=== PATIENT | female | born 1995 | race Caucasian/White ===

== ENCOUNTER 2019-05-03 07:20 | Inpatient (IN) ==
[2019-05-03] MEDS ORDERED: OXYTOCIN 30 UNITS/500 ML BAG IV PRN ×3 (07:30→19:16)
[2019-05-03 07:47] LABS: Hematocrit (blood only) 40.5 % (37-47); Hemoglobin 14.2 g/dL (12.0-16.0); Mean Corpuscular Hemoglobin 33.4 pg (25-34); Mean Corpuscular Volume 95.3 fL (80-100); Mean Platelet Volume 10.4 fL (7.4-10.4); Platelet Count 201 K/uL (130-400); RDW Coefficient of Variation 13.2 % (11.5-14.5); RDW Standard Deviation 45.2 fL (36.4-46.3); Red Blood Count 4.25 M/uL (4.2-5.4); White Blood Count 10.77 K/uL (4.8-10.8)
[2019-05-03 07:48] LABS: Mean Corpuscular Hgb Conc 35.1 g/dL (32-36)
[2019-05-03] MEDS: LACTATED RINGER'S 1,000 ML IV PRN ×2 (11:29→18:01)
--- NOTE | 2019-05-03 17:52 | History & Physical Report ---
Date of Service May 03, 2019 Assessment & Plan (1) Encounter for supervision of normal first : 24yo G1 at 40.3 weeks GA. IOL/SROM. 1. Fetus: Cat 1 2. Labor: Patient has been ruptures without significant change for ~ 4 hours. Will augment with oxytocin. Rupture positive. 3. Vitals: WNL 4. GBS neg 5. Rh positive History of Present Illness Primary Care Provider: Ham Gonzalez MD 24yo G1 at 40.3 weeks GA. IOL/SROM. Patient was scheduled for IOL today but called in with LOF this AM. Reporting occassional contractions. No VB. Good FM. complicated by Hx of maternal VSD. Patient had normal ECHO. GBS - Allergies Allergy/AdvReac Type Severity Reaction Status Date / Time No Known Drug Allergies Allergy Verified 05/02/19 10:31 Home Medications Home Medications Medication Instructions Recorded Confirmed Type ferrous sulfate [iron] 325 mg PO DAILY 05/03/19 05/03/19 History vit no.[id number] 1 tab PO HS 05/03/19 05/03/19 History [ Vitamin] Patient History Medical History H/O varicella Surgical History S/P breast augmentation (~05/24/17) S/P tonsillectomy (~05/03/19) S/P wisdom tooth extraction (~07/31/08) Social History Preferred Language: Icelandic Communication Ability: Effective Working Supervisor Required: No Beliefs That Will Affect Care: None marital status: Current Living Situation: Spouse Other Information That Helps Us Care for You: No Feels Safe at Home: Yes Safety Concerns: Feels Safe At This Time Smoking Status: Never smoker Do You Dip or Chew Tobacco: No ; Second Hand Exposure: No ; Tobacco Cessation Education Requested by Patient: No Hx Alcohol Use: No Hx Substance Use: No Review of Systems All systems reviewed & are unremarkable except as noted in HPI & below Physical Exam Gastrointestinal (Abdomen): Percussion/Palpation: abdomen soft; abdomen nontender Genitourinary: Manual OB Exam: + cervical dilation 6 cm, + cervical effacement 80% and + station -1 OB Exam Monitor Tracing: + external FHT monitor used, + external uterine monitor used, + category I and + normal FHT variability Results & Data Vital Signs (Past 12 Hours) Vital Signs Temp Pulse Resp BP 05/03/19 17:15 36.8 C 86 20 118/55 L 05/03/19 16:11 83 111/54 L 05/03/19 15:11 36.9 C 77 16 113/63 05/03/19 14:10 80 103/49 L 05/03/19 13:10 78 20 103/55 L 05/03/19 12:09 85 111/61 05/03/19 11:54 36.7 C 87 16 110/58 L 05/03/19 11:37 77 20 114/56 L 05/03/19 09:14 36.8 C 83 16 113/65 05/03/19 08:07 36.7 C 85 20 118/73
[2019-05-03] MEDS ORDERED: BUPIVACAINE 0.25% 30 ML VIAL ONE (17:56)
[2019-05-03] MEDS ORDERED: ePHEDrine sulfate 50 MG/ML AMP ONE (17:56)
[2019-05-03] MEDS ORDERED: fentaNYL citrate 100 MCG/2 ML VIAL ONE (17:57)
[2019-05-03] MEDS ORDERED: fentaNYL 2MCG/ML ROPIV 1.25MG/ML 100 ML BAG EPI ONE (17:57)
--- NOTE | 2019-05-03 18:01 | Labor Progress Brief Note ---
Date of Service May 03, 2019 Subjective Reason For Note: Routine Evaluation Current Pain Level(1-10): 3 Assessment & Plan (1) Encounter for supervision of normal first : 24yo G1 at 40.3 weeks GA. IOL/SROM. 1. Fetus: Cat 1 2. Labor: Continue augmentation with oxytocin. Rupture positive. 3. Vitals: WNL 4. GBS neg 5. Rh positive Physical Exam Genitourinary: Manual OB Exam: + cervical dilation 6 cm, + cervical effacement 80% and + station -1 OB Exam Monitor Tracing: + external FHT monitor used, + external uterine monitor used and + category I Ruptured forebag for clear Results & Data Vital Signs (Past 12 Hours) Vital Signs Temp Pulse Resp BP 05/03/19 17:15 36.8 C 86 20 118/55 L 05/03/19 16:11 83 111/54 L 05/03/19 15:11 36.9 C 77 16 113/63 05/03/19 14:10 80 103/49 L 05/03/19 13:10 78 20 103/55 L 05/03/19 12:09 85 111/61 05/03/19 11:54 36.7 C 87 16 110/58 L 05/03/19 11:37 77 20 114/56 L 05/03/19 09:14 36.8 C 83 16 113/65 05/03/19 08:07 36.7 C 85 20 118/73
--- NOTE | 2019-05-03 18:08 | Anesthesiology Consultation ---
Date of Service May 03, 2019 Assessment & Plan (1) Encounter for pre-operative examination: Chart Review Chart Review: Acceptable Risk for Labor Epidural History Height/Weight Height: 5 ft 4 in Weight: 63.503 kg Allergies Allergy/AdvReac Type Severity Reaction Status Date / Time No Known Drug Allergies Allergy Verified 05/02/19 10:31 Medications Home Medications Medication Instructions Recorded Confirmed Last Taken ferrous sulfate [iron] 325 mg PO DAILY 05/03/19 05/03/19 05/02/19 21:00 vit no.[id number] 1 tab PO HS 05/03/19 05/03/19 05/02/19 21:00 [ Vitamin] Active Medications Generic Name Dose Route Start Last Admin Trade Name Freq PRN Reason Stop Dose Admin Lactated Ringer's 1,000 mls @ 125 mls/hr 05/03/19 07:35 05/03/19 18:01 Lr IV 05/05/19 07:34 999 mls/hr .Q8H PRN Administration L&D Protocol Protocol Oxytocin 30 units in 500 mls @ 17 mls/hr 05/03/19 10:58 05/03/19 16:05 Pitocin IV 06/02/19 10:57 1.02 units/hr .Q24H PRN 17 mls/hr Labor Induction/Augmentation Titration Protocol 1.02 UNITS/HR Past Medical History Medical History H/O varicella Past Family History Family History Grandmother (Paternal) Ovarian cancer Ovarian cyst Past Surgical History Surgical History S/P breast augmentation (~05/24/17) S/P tonsillectomy (~05/03/19) S/P wisdom tooth extraction (~07/31/08) Social History Smoking Status: Never smoker Do You Dip or Chew Tobacco: No Hx Alcohol Use: No Hx Substance Use: No Physical Exam Vital Signs Last Vital Signs Temp 36.8 C 05/03/19 17:15 Pulse 86 05/03/19 17:15 Resp 20 05/03/19 17:15 BP 118/55 L 05/03/19 17:15 Testing Laboratory Results 05/03/19 07:35
[2019-05-03] MEDS ORDERED: SUPERCREAM 0.870% 15 GM JAR EXT PRN (19:16)
[2019-05-03] MEDS ORDERED: ACETAMINOPHEN 325 MG TAB PO PRN (19:16)
[2019-05-03] MEDS ORDERED: BENZOCAINE 20% AER SPR 82.5 GM CAN EXT PRN (19:16)
[2019-05-03] MEDS ORDERED: HYDROCORTISONE ACETATE 25 MG SUPP PR PRN (19:16)
[2019-05-03] MEDS ORDERED: DIPHTHERIA/TETANUS/PERTUSSIS 0.5 ML SYR/VIAL IM ONE (19:16)
[2019-05-03] MEDS: IBUPROFEN 600 MG TAB PO PRN (19:32)
[2019-05-03] MEDS: DOCUSATE SODIUM 100 MG CAP PO SCH (21:00)
--- NOTE | 2019-05-03 22:09 | Delivery Summary ---
DATE OF OPERATION: 05/03/2019 PROCEDURE: Normal spontaneous vaginal delivery with first degree laceration repair. SURGEON: Rohith Goldberg M.D. PREOPERATIVE DIAGNOSES: 1. Single intrauterine at 40 weeks 3 days gestational age. 2. Induction of labor. POSTOPERATIVE DIAGNOSIS: Status post delivery. ESTIMATED BLOOD LOSS: 300 mL. DRAINS: None. FLUIDS: Continuous lactated Ringer. URINE OUTPUT: Not measured. COMPLICATIONS: None. FINDINGS: Viable male infant with weight pending, Apgars of 8 and 9 at 1 and 5 minutes respectively. INDICATIONS AND DESCRIPTION OF PROCEDURE: Alisa is a 24-year-old G1, P0, admitted at 40 weeks 3 days gestational age for induction of labor and possible spontaneous rupture of membranes. The patient called the on-salesperson furniture approximately 6:30 with report of rupture of membranes and was sent to labor and delivery. At that time, the patient was positive for Nitrazine and appeared to be ruptured on exam. The patient was started on oxytocin approximately 10:30 a.m. after approximately 4 hours to allow for spontaneous labor to ensue. The oxytocin was titrated per regular protocol. The patient underwent rupture of a forebag approximately 5:30 p.m. and then progressed in labor to complete +2 station for approximately 30 minutes. The patient then pushed for approximately 15 minutes to achieve delivery. The patient progressed to 10 cm dilated, 100% effaced, positive 2-3 station, pushed intact perineum without anesthesia and delivered a viable male infant. Weight and Apgars as noted above. Head of the delivered in LYLY position to right transverse. No nuchal cord was noted. Body and shoulders quickly followed. was noted to be vigorous soon after delivery. A 2-minute delayed cord clamping was initiated, after which the cord was double clamped and cut and the remained on maternal abdomen and still noted to be vigorous. Cord blood was then obtained. Attention was then turned to delivery of the placenta, which was delivered intact with 3-vessel cord, gentle cord traction. On inspection of the vagina, perineum and cervix, there was noted to be a first degree perineal laceration, which was repaired with 3-0 Vicryl in traditional fashion. Needle, sponge and instrument counts were correct at the completion of the case. Both mother and were stable in the immediate post-delivery. I attest to the content of the Intraoperative Record and any orders documented therein. Any exception s are noted below.
[2019-05-04] MEDS: IBUPROFEN 600 MG TAB PO PRN ×4 (01:33→20:41)
--- NOTE | 2019-05-04 06:59 | Obstetrical Progress Note ---
Date of Service <Chet Lacy DO - Last Filed: 05/04/19 07:21> May 04, 2019 Assessment & Plan <Chet Lacy DO - Last Filed: 05/04/19 07:21> (1) : -PPD#1 -Vitals reviewed, WNL (Tmax 37.0) - GBS -, Blood Type O+ - Clinically stable. - Feels well today. - Pain well controlled. - Routine post- care - Encourage continuation Day #:: 1 Subjective <Chet Lacy DO - Last Filed: 05/04/19 07:21> Ambulation: limited ambulation (only ambulates to use the restroom) Voiding: voiding difficulty (states she only voided once, and felt as though she had to force herself.) Passing Gas:: No Diet Tolerance:: regular diet Lochia:: Moderate Feeding Type:: breast feeding Current Pain Level(1-10): 7 (with movement. Improves with analgesics) Patient is a 24 PPD#1. Patient states that she is feeling relatively well today and that her pain is well controlled while at rest. With movement she notes pain in her low back and sacrum which she states is where she felt her pain during labor. She has not been ambulating much as she would like. Constitutional: no fever and no chills Respiratory: no cough, no dyspnea and no wheezing Cardiovascular: no chest pain, no dyspnea, no palpitations, no edema and no calf pain Breast: no breast pain Gastrointestinal: no abdominal pain, no nausea and no vomiting Genitourinary (female): no dysuria and no difficulty urinating Neurologic: no headache(s) Physical Exam <DO Lottie Rosales Last Filed: 05/04/19 07:21> Constitutional WD/WN, vitals as above Respiratory normal respiratory effort, lungs clear to auscultation Cardiovascular Rate/Rhythm: regular rate and regular rhythm Heart Sounds: normal S1 and normal S2; no click, no gallop, no murmur and no cardiac rub Extremities: no calf tenderness and no edema Gastrointestinal (Abdomen) Inspection/Auscultation: abdomen normal to inspection and normal bowel sounds Percussion/Palpation: + abdomen tender (Slight tenderness to palpation of lower quadrants of abdomen) and abdomen soft Genitourinary OB Exam Abdomen: + fundal height Fundus: + firm and + relation to umbilicus (2cm below); not tender and not boggy Results & Data <Chet Lacy DO - Last Filed: 05/04/19 07:21> Vital Signs (Past 12 Hours) Vital Signs Temp Pulse Pulse Resp BP BP 05/04/19 04:00 36.7 C 78 18 110/78 05/03/19 23:00 36.7 C 80 18 112/76 05/03/19 21:40 36.7 C 73 18 129/63 05/03/19 21:10 93 H 119/61 05/03/19 20:55 78 121/67 05/03/19 20:40 37.0 C 97 H 18 121/60 05/03/19 20:10 82 18 111/67 05/03/19 19:55 73 18 113/64 05/03/19 19:40 79 18 120/76 05/03/19 19:24 72 18 132/79 05/03/19 19:08 36.7 C 80 18 128/72 Medications Administered Current Inpatient Medications Acetaminophen (Tylenol) 650 mg PO Q6H PRN PRN Reason: Pain/LUND/Fever Stop: 06/02/19 19:15 Benzocaine (Dermoplast Pain Relieving [place]) 1 appln EXT PRN PRN PRN Reason: Perineal Discomfort Stop: 06/02/19 19:15 Last Admin: 05/03/19 19:33 Dose: 82.5 appln Documented by: Bisacodyl (Dulcolax) 5 mg PO 1999 [facility] Stop: 05/04/19 20:01 Bisacodyl (Dulcolax) 10 mg MO DAILY PRN PRN Reason: No BM on 2nd post- day Stop: 06/04/19 08:59 Cocaine HCl (Supercream 0.870%) 1 gm EXT BID PRN PRN Reason: Hemorrhoidal Inflammation Stop: 05/17/19 19:15 Docusate Sodium (Colace) 100 mg PO DAILY@08,21 [facility] Stop: 06/02/19 20:59 Last Admin: 05/03/19 21:00 Dose: Not Given Documented by: Hydrocortisone (Anusol Hc) 25 mg MO BID PRN PRN Reason: Hemorrhoidal Inflammation Stop: 06/02/19 19:15 Lactated Ringer's (Lr) 1,000 mls @ 125 mls/hr IV .Q8H PRN; Protocol PRN Reason: L&D Protocol Stop: 05/05/19 07:34 Last Admin: 05/03/19 18:01 Dose: 999 mls/hr Documented by: Oxytocin (Pitocin) 30 units in 500 mls @ 333.333 mls/hr IV .Q1H30M PRN; Protocol PRN Reason: Bleeding Control Stop: 06/02/19 07:29 Oxytocin (Pitocin) 30 units in 500 mls @ 333.333 mls/hr IV .Q1H30M PRN; Protocol PRN Reason: Bleeding Control Ibuprofen (Motrin) 600 mg PO Q4H PRN PRN Reason: Pain/LUND/Cramping/Fever Stop: 06/02/19 19:15 Last Admin: 05/04/19 01:33 Dose: 600 mg Documented by: Prenat Multivit/[employer]/Iron/Folic Ac ( Vitamin) 1 tab PO DAILY@08 [facility] Stop: 06/03/19 07:59 <Rohith Goldberg MD - Last Filed: 05/04/19 07:26> Co-Signing Physician Notes Patient seen and evaluated and agree with the above findings and plan. Continue routine post care Resident Activity Tracking <Chet Lacy DO - Last Filed: 05/04/19 07:21> Resident Involvement: Resident Care Provided Care Provided: OB Delivery
[2019-05-04] MEDS: PRENATAL VITAMIN 1 TAB PO SCH (07:19)
[2019-05-04] MEDS: DOCUSATE SODIUM 100 MG CAP PO SCH ×2 (07:19→20:41)
[2019-05-04 07:20] LABS: Hematocrit (blood only) 40.5 % (37-47); Hemoglobin 13.9 g/dL (12.0-16.0)
[2019-05-04] MEDS ORDERED: BISACODYL 5 MG TABEC PO SCH (20:00)
--- NOTE | 2019-05-05 07:15 | Obstetrical Progress Note ---
Date of Service <Chet Lacy DO - Last Filed: 05/05/19 07:20> May 05, 2019 Assessment & Plan <DO Lottie Rosales Last Filed: 05/05/19 07:20> (1) : -PPD#2 -Vitals reviewed, WNL (Tmax 37.2) - GBS -, Blood Type O+ - Clinically stable. - Feels well today. - Pain well controlled. - Routine post- care - Encourage continuation - Counseled patient on discharge today. Present on Admission?: Yes Day #:: 2 Subjective <Chet Lacy DO - Last Filed: 05/05/19 07:20> Ambulation: ambulating normally Voiding: no voiding problems Passing Gas:: Yes Diet Tolerance:: regular diet Lochia:: Moderate Feeding Type:: breast feeding Current Pain Level(1-10): 3 (improves with analgesics) Patient is a 24 PPD#2. Patient notes doing much better today and states she has been moving around more. Her only complaint this morning is that she has slight nipple pain. She has no other complaints at this time. Constitutional: no fever and no chills Respiratory: no cough, no dyspnea and no wheezing Cardiovascular: no chest pain, no dyspnea, no palpitations, no edema and no calf pain Breast: + breast pain (slight nipple pain) Gastrointestinal: no abdominal pain, no nausea and no vomiting Genitourinary (female): no dysuria and no difficulty urinating Neurologic: no headache(s) Physical Exam <DO Lottie Rosales Last Filed: 05/05/19 07:20> Constitutional WD/WN, vitals as above Respiratory normal respiratory effort, lungs clear to auscultation Cardiovascular Rate/Rhythm: regular rate and regular rhythm Heart Sounds: normal S1 and normal S2; no click, no gallop, no murmur and no cardiac rub Extremities: no calf tenderness and no edema Gastrointestinal (Abdomen) Inspection/Auscultation: abdomen normal to inspection and normal bowel sounds Percussion/Palpation: abdomen soft; abdomen nontender Genitourinary OB Exam Abdomen: + fundal height Fundus: + firm and + relation to umbilicus (2.5cm below); not tender and not boggy Results & Data <Chet SaldañanDO Tafoya Last Filed: 05/05/19 07:20> Vital Signs (Past 12 Hours) Vital Signs Temp Pulse Resp BP 05/04/19 23:25 37.2 C 61 18 124/71 05/04/19 20:00 37 C 73 18 126/67 Medications Administered Current Inpatient Medications Acetaminophen (Tylenol) 650 mg PO Q6H PRN PRN Reason: Pain/LUND/Fever Stop: 06/02/19 19:15 Benzocaine (Dermoplast Pain Relieving [place]) 1 appln EXT PRN PRN PRN Reason: Perineal Discomfort Stop: 06/02/19 19:15 Last Admin: 05/03/19 19:33 Dose: 82.5 appln Documented by: Bisacodyl (Dulcolax) 10 mg MT DAILY PRN PRN Reason: No BM on 2nd post- day Stop: 06/04/19 08:59 Cocaine HCl (Supercream 0.870%) 1 gm EXT BID PRN PRN Reason: Hemorrhoidal Inflammation Stop: 05/17/19 19:15 Docusate Sodium (Colace) 100 mg PO DAILY@08,21 [facility] Stop: 06/02/19 20:59 Last Admin: 05/04/19 20:41 Dose: 100 mg Documented by: Hydrocortisone (Anusol Hc) 25 mg [place] BID PRN PRN Reason: Hemorrhoidal Inflammation Stop: 06/02/19 19:15 Lactated Ringer's (Lr) 1,000 mls @ 125 mls/hr IV .Q8H PRN; Protocol PRN Reason: L&D Protocol Stop: 05/05/19 07:34 Last Admin: 05/03/19 18:01 Dose: 999 mls/hr Documented by: Oxytocin (Pitocin) 30 units in 500 mls @ 333.333 mls/hr IV .Q1H30M PRN; Protocol PRN Reason: Bleeding Control Stop: 06/02/19 07:29 Oxytocin (Pitocin) 30 units in 500 mls @ 333.333 mls/hr IV .Q1H30M PRN; Protocol PRN Reason: Bleeding Control Ibuprofen (Motrin) 600 mg PO Q4H PRN PRN Reason: Pain/LUND/Cramping/Fever Stop: 06/02/19 19:15 Last Admin: 05/04/19 20:41 Dose: 600 mg Documented by: Prenat Multivit/Ralls/Iron/Folic Ac ( Vitamin) 1 tab PO DAILY@08 [place] Stop: 06/03/19 07:59 Last Admin: 05/04/19 07:19 Dose: 1 tab Documented by: <Armita Guaman MD, FACOG - Last Filed: 05/05/19 08:04> Co-Signing Physician Notes Resident Physician Supervision Note: I was present with Dr. Lacy during the history and exam. I discussed the case with the resident and agree with the findings and plan as documented in the note. Any exceptions or clarifications are listed here: Doing well. ff 2down, breast feeding, guero po, voiding. ready to go home. discharge instructions reviewed. f/u 6wks pp check. Documented By: Amrita Guaman MD, FACOG Resident Activity Tracking <Chet Lacy DO - Last Filed: 05/05/19 07:20> Resident Involvement: Resident Care Provided Care Provided: OB Delivery
[2019-05-05] MEDS: DOCUSATE SODIUM 100 MG CAP PO SCH (08:14)
[2019-05-05] MEDS: PRENATAL VITAMIN 1 TAB PO SCH (08:15)
[2019-05-05] MEDS: IBUPROFEN 600 MG TAB PO PRN (08:15)
[2019-05-05] MEDS ORDERED: BISACODYL 10 MG SUPP PR PRN (09:00)
== END 2019-05-05 12:35 | disposition home or self-care (01) | DRG 806 ==
LOC: 4S1 07:20 → 4S2 22:22

== ENCOUNTER 2022-03-25 10:45 | Inpatient (IN) ==
[2022-03-25] MEDS ORDERED: OXYTOCIN 30 UNITS/500 ML BAG IV PRN ×2 (17:23→21:03)
[2022-03-25] MEDS ORDERED: LACTATED RINGER'S 1,000 ML IV PRN (17:23)
--- NOTE | 2022-03-25 17:26 | History & Physical Report ---
Date of Service March 25, 2022 Assessment & Plan (1) 40 weeks gestation of : (2) Encounter for induction of labor: Plan Fetus category one. Plan arom. anticipate . Patient would like to go unmedicated. Also requests not to push directly on her back as she had some iss ues with her sacrum in her previous delivery. Will attempt based on pain management and monitoring. Admission and Anticipated Discharge Date Admission Date: March 25, 2022 History of Present Illness Chief Complaint: induction Primary Care Provider: Davian Aquino DO Patient is a 27yowf with iup at 40 1/7 weeks who presented to the office yesterday and was 4-5cm. She is concerned about rapid delivery because she delivered very quickly after being ruptured. she notes some contractions. Good fm. no lof. no vb. and Delivery Plans Maternal VSD [place] [facility] [place] flu shot given 08/13/21 - [place] did not have covid vaccine Covid positive by home antigen test 10/08 OB Labs: Blood Type O Positive 08/13/21 Antibody Screen NEGATIVE 08/13/21 Hemoglobin 13.7 g/dL (12.0-16.0) 12/30/21 Hematocrit 40.0 % (37-47) 12/30/21 Mean Corpuscular Volume 91.9 fL (80-100) 08/13/21 Platelet Count 319 K/uL (130-400) 08/13/21 Rubella IgG Antibody Immune (Immune) 08/13/21 Rapid Plasma Reagin Nonreactive (Nonreactive) 08/13/21 Hepatitis B Surface Antigen Neg (Neg) 08/13/21 Hepatitis C Antibody Neg (Neg)B 08/13/21 HIV (1&2) Ab and P24 Ag, 4th Gener Neg (Neg) 08/13/21 Glucose 1 Hour 50 gm Load 101 mg/dl (70-130) 12/30/21 OB Optional Labs: Chlamydia trachomatis RNA NOT DETECTED (NOT DETECTED) 08/13/21 Neisseria gonorrhoeae RNA NOT DETECTED (NOT DETECTED) 08/13/21 Thyroid Stimulating Hormone (TSH) 1.320 uIu/ml (0.300-4.500) 07/06/19 Labs Reviewed: CF/SMA negative in 1st (09/18/18) declines panorama, qs, afp--akh gbs neg Allergies Allergy/AdvReac Type Severity Reaction Status Date / Time No Known Allergies Allergy Verified 03/24/22 10:08 Home Medications Medication Instructions Recorded Confirmed Type lactobacillus combination no.4 3 3,000 mmu cells PO QAM 11/21/20 03/25/22 History billion cell capsule (Probiotic) prenat.vits,salvador,zax-xoyr-cnrnb 1 tab PO DAILY 08/05/21 03/25/22 History magnesium 500 mg tablet 500 mg PO HS 12/05/21 03/25/22 History Patient History Medical History Hx of migraines anxiety on Zoloft (childbirth 06/2020) Ventricular septal defect 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 Kramer). Cardio monitoring with yearly echos. Surgical History History of mandibular surgery PONV (postoperative nausea and vomiting) after tonsilectomy S/P breast augmentation S/P tonsillectomy S/P wisdom tooth extraction Family History Grandmother (Paternal) Ovarian cancer Ovarian cyst Father Adenocarcinoma of large intestine Social History Smoking Status: Never smoker Second Hand Exposure: No; Hx Alcohol Use: No Hx Substance Use: No Preferred Language: Angolan Communication Ability: Effective Stock Raiser Required: No Beliefs That Will Affect Care: None marital status: marital status details: Jimmy Burris [phone]) [phone] Current Living Situation: Alone and Family Current Living Situation Comment: lives with and children, 2 dogs current occupational status: unemployed current occupation: homemaker Other Information That Helps Us Care for You: No Feels Safe at Home: Yes Safety Concerns: Feels Safe At This Time Childhood Exposure to Second-Hand Smoke: No caffeine: No Dental Care, Regularly: Yes Seatbelt Use: always Sunscreen Use: Yes Do you think of yourself as: straight/heterosexual Gender Identity: Female Assistive Devices: None OB History Past Pregnancies Del. Date GA wks Lbr Lgth wt Sex Type del Anes Place Del Prov ? Comment 05/03/19 40 6.5 hrs 7lb 9oz M L ocal [facility] Dr. Goldberg No IOL 06/20/20 40 6lb 8.9oz M Non e [facility] Ashlyn No [employer] History noncontributory Physical Exam Constitutional: WD/WN, vitals as above Respiratory: normal respiratory effort, lungs clear to auscultation Cardiovascular: RRR, no murmur, no edema Gastrointestinal (Abdomen): soft, gravid, nt Psychiatric: A+Ox3, euthymic affect Genitourinary: cx-/-1/soft/mid toco--occasional efm--130s with mod variability, accels to 160s, no decels Results & Data ([facility]) Vital Signs (Past 12 Hours) Vital Signs Pulse BP 03/25/22 17:08 75 109/62 Code Status & VTE Plan VTE Prophylaxis Plan VTE Prophylaxis will be ordered: No Coding Level of Care Code None Diagnoses 40 weeks gestation of Z3A.40 Encounter for induction of labor Z34.90
[2022-03-25 17:52] LABS: Hematocrit (blood only) 38.9 % (34.1-44.9); Hemoglobin 13.6 g/dl (12.0-16.0); Mean Corpuscular Hemoglobin 32.1 pg (25.0-34.0); Mean Corpuscular Volume 91.7 fL (80.0-100.0); Mean Platelet Volume 10.3 fL (9.4-12.3); Platelet Count 231 K/uL (130-400); RDW Coefficient of Variation 12.3 % (11.5-14.5); RDW Standard Deviation 40.8 fL (36.4-46.3); Red Blood Count 4.24 M/uL (3.93-5.22); White Blood Count 8.14 K/ul (4.8-10.8)
--- NOTE | 2022-03-25 18:57 | Labor Progress Brief Note ---
Date of Service March 25, 2022 Subjective ready for arom Assessment & Plan (1) Encounter for induction of labor: (2) 40 weeks gestation of : Plan arom done, fhts categ 1. anticipate . Admission and Anticipated Discharge Date Admission Date: March 25, 2022 Physical Exam Constitutional: WD/WN, vitals as above Genitourinary: Manual OB Exam: + cervical dilation 6 cm, + cervical effacement 90%, + station -1 and + amniotic fluid (arom ) clear OB Exam Monitor Tracing: + external FHT monitor used, + external uterine monitor used (irreg), + category I and + normal FHT variability Results & Data ([facility]) Vital Signs (Past 12 Hours) Vital Signs Temp Pulse Resp BP 03/25/22 18:52 67 96/55 L 03/25/22 17:08 98.8 F 75 18 109/62 Coding Level of Care Code None Diagnoses Encounter for induction of labor Z34.90 40 weeks gestation of Z3A.40
[2022-03-25] MEDS ORDERED: DIPHTHERIA/TETANUS/PERTUSSIS 0.5 ML SYR/VIAL IM ONE (21:03)
[2022-03-25] MEDS ORDERED: bisacodyL 10 MG SUPP PR PRN (21:03)
[2022-03-25] MEDS ORDERED: HYDROCORTISONE ACETATE 25 MG SUPP PR PRN (21:03)
[2022-03-25] MEDS ORDERED: ACETAMINOPHEN 325 MG TAB PO PRN (21:03)
[2022-03-25] MEDS ORDERED: oxyCODONE/ACETAMINOPHEN 5mg/325mg TAB PO PRN (21:03)
[2022-03-25] MEDS ORDERED: BENZOCAINE 20% AER SPR 82.5 GM CAN EXT PRN (21:03)
--- NOTE | 2022-03-25 21:06 | Delivery Summary ---
Vaginal Delivery Summary Date of Service March 25, 2022 Vaginal Delivery Summary [facility] Pre-operative Diagnosis: at 40 1/7 advanced cervical dilation Post-operative Diagnosis: same Procedure: arom EBL: 100cc Anesthesia: none Procedure: The patient presented for induction with advanced cervical dilation. She underwent arom and then progressed to c/c/+2 with urge to push. Wanted to push in hands/knees. The patient pushed for 2 contractions to deliver a viable male infant in antoine position. The nose and mouth were bulb suctioned on the perineum and the rest of the was then delivered without difficulty. The baby was vigorous. The nose and mouth were again bulb suctioned and the infant was placed in the maternal abdomen for drying and attention. Cord was clamped and cut at one minute of life. Cord blood and segment obtained. Placenta delivered spontaneous, intact with a three vessel cord. Cervix/sulci/rectum/perineum were intact. Hemostasis obtained with dilute pitocin and fundal massage. Apgars were 8/9. Mother and baby doing well at the end of the delivery. [facility] Vaginal Delivery Charge Delivery Type Details: [facility]
[2022-03-25] MEDS: IBUPROFEN 600 MG TAB PO PRN (21:18)
--- NOTE | 2022-03-26 06:03 | Obstetrical Progress Note ---
Date of Service <Laverne Murphy - Last Filed: 03/26/22 06:39> March 26, 2022 Assessment & Plan <Laverne Murphy DO - Last Filed: 03/26/22 06:39> (1) Status post vaginal delivery: Plan continue OOB, ambulation, diet as tolerated <Shanae Mcintyre MD, FACOG - Last Filed: 03/26/22 07:40> (1) Status post vaginal delivery: Subjective <Laverne Murphy - Last Filed: 03/26/22 06:39> Alisa is a 27 y/o female who is now PPD # 1 following vaginal delivery at 40 1/7. Reports feeling well overall this morning. Mild abdominal cramping & pain well managed on analgesics. Voiding. Tolerating meals overnight and able to ambulate some. Is passing gas, but no bowel movements. Some persistent lochia with some improvement this morning. Breast feeding. Review of Systems Denies fever, chills, sweats Denies shortness of breath, difficulty breathing, chest pain, palpitations, chest pressure. Denies breast pain. Denies dysuria. Denies headache or changes in vision. Physical Exam <Laverne Murphy - Last Filed: 03/26/22 06:39> General: Alert, oriented. No acute distress. Cardiac: Regular rate and rhythm, no murmurs/rubs/gallops. Respiratory: Clear to auscultation bilaterally a/p, no wheezes/rales/rhonchi. No increased work of breathing. Symmetrical chest rise. No respiratory distress. Abdomen: Soft, nontender, nondistended. Bowel sounds present. Uterus: Uterine fundus firm, palpable 2 cm below umbilicus. Lower Extremities: No lower extremity edema or swelling. No deep calf pain. Elle's negative bilaterally. Results & Data ([facility]) <Laverne Murphy DO - Last Filed: 03/26/22 06:39> Vital Signs (Past 12 Hours) Vital Signs Temp Pulse Pulse Resp BP BP BP 03/26/22 02:30 36.5 C 63 16 91/58 L 03/25/22 23:30 36.7 C 100 H 16 104/65 03/25/22 21:28 20 07/21/22 21:12 20 03/25/22 21:00 20 03/25/22 22:57 85 101/50 L 03/25/22 22:42 90 105/55 L 03/25/22 22:27 86 101/53 L 03/25/22 22:12 54 L 97/56 L 03/25/22 21:58 61 108/58 L 03/25/22 21:45 60 108/58 L 03/25/22 21:27 60 114/65 03/25/22 21:12 78 118/61 03/25/22 21:00 80 124/69 03/25/22 20:40 36.6 C 58 L 20 116/57 L 03/25/22 18:52 37.1 C 67 96/55 L Pulse Ox O2 Del Method 03/26/22 02:30 98 Room Air 03/25/22 23:30 97 Room Air 03/25/22 21:28 03/25/22 21:12 03/25/22 21:00 03/25/22 22:57 03/25/22 22:42 03/25/22 22:27 03/25/22 22:12 03/25/22 21:58 03/25/22 21:45 03/25/22 21:27 03/25/22 21:12 03/25/22 21:00 03/25/22 20:40 03/25/22 18:52 <Shanae Mcintyre MD, FACOG - Last Filed: 03/26/22 07:40> Co-Signing Physician Notes Resident Physician Supervision Note: I interviewed and examined the patient. Discussed with Dr. Murphy and agree with findings and plan as documented in the note. Any exceptions or clarifications are listed here: Doing well. Routine ppd 1 care. Documented By: Shanae Mcintyre MD, FACOG
[2022-03-26 06:11] LABS: Hematocrit (blood only) 39.8 % (34.1-44.9); Hemoglobin 13.5 g/dl (12.0-16.0)
[2022-03-26] MEDS: DOCUSATE SODIUM 100 MG CAP PO SCH ×2 (09:07→21:09)
[2022-03-26] MEDS: PRENATAL VITAMIN 1 TAB PO SCH (09:08)
[2022-03-26] MEDS: IBUPROFEN 600 MG TAB PO PRN (13:14)
[2022-03-26] MEDS ORDERED: bisacodyL 5 MG TABEC PO SCH (20:00)
--- NOTE | 2022-03-27 06:06 | Obstetrical Progress Note ---
Date of Service <Lavernemandy MurphyDO - Last Filed: 03/27/22 06:48> March 27, 2022 Assessment & Plan <Laverne uMrphyDO - Last Filed: 03/27/22 06:48> (1) Status post vaginal delivery: Plan continue OOB, ambulation, diet as tolerated <Rohith Goldberg MD - Last Filed: 03/27/22 08:07> (1) Status post vaginal delivery: Subjective <Lavernemandy MurphyDO - Last Filed: 03/27/22 06:48> Alisa is a 27 y/o female who is now PPD # 1 following vaginal delivery at 40 1/7. Reports feeling well overall this morning. Mild abdominal cramping, has been having some increased right sided lower abdomen pain. Voiding. Tolerating meals overnight and able to ambulate some. Is passing gas, but no bowel movements. Some persistent lochia with some improvement this morning. Breast feeding. Review of Systems Denies fever, chills, sweats Denies shortness of breath, difficulty breathing, chest pain, palpitations, chest pressure. Denies breast pain. Denies dysuria. Denies headache or changes in vision. Physical Exam <Lavernemandy MurphyDO - Last Filed: 03/27/22 06:48> General: Alert, oriented. No acute distress. Cardiac: Regular rate and rhythm, no murmurs/rubs/gallops. Respiratory: Clear to auscultation bilaterally a/p, no wheezes/rales/rhonchi. No increased work of breathing. Symmetrical chest rise. No respiratory distress. Abdomen: Soft, nontender, nondistended. Bowel sounds present. Uterus: Uterine fundus firm, palpable 4 cm below umbilicus. Lower Extremities: No lower extremity edema or swelling. No deep calf pain. Elle's negative bilaterally. Results & Data ([facility]) <Laverne MurphyDO - Last Filed: 03/27/22 06:48> Vital Signs (Past 12 Hours) Vital Signs Temp Pulse Resp BP Pulse Ox O2 Del Method 03/26/22 23:35 36.7 C 62 18 122/77 97 Room Air 03/26/22 20:50 36.5 C 66 20 116/77 98 Room Air <Rohith Goldberg MD - Last Filed: 03/27/22 08:07> Co-Signing Physician Notes Patient seen with resident agree with the above findings and plan. Doing well. Stable for discharge.
[2022-03-27] MEDS: DOCUSATE SODIUM 100 MG CAP PO SCH (10:15)
[2022-03-27] MEDS: PRENATAL VITAMIN 1 TAB PO SCH (10:16)
[2022-03-27] MEDS: IBUPROFEN 600 MG TAB PO PRN (10:16)
== END 2022-03-27 10:20 | disposition home or self-care (01) | DRG 806 ==
LOC: 4S1 17:00 → 4E2 23:37

== ENCOUNTER 2023-12-25 09:58 | Inpatient (IN) ==
--- OUTSIDE RECORDS SUMMARY | 2023-12-25 10:05 | External Medical Summary | Summary of Care ---
Author Name Unknown Organization [facility] Address [address] [place] [address] Phone [phone] Care Team Providers Care Manager Actuarial Name Role Phone Davian Aquino DO Primary Care Provider Reason for Visit * Reason Onset Date Comments Test Results 12/16/2023 Encounter Details Date Type Department Care Team (Late st Contact Info) Description 12/16/[address] [facility] [address] [place] [id number] Davian Aquino DO [address] [place] [id number] Test Results Allergies No known active allergiesdocumented as of this encounter (statuses as of 12/20/2023) Medications Medication Sig Dispensed Refills Start Date End Date Status Probiotic Acidophilus Oral Capsule Take by mouth. 0 Active Magnesium Oxide 250 MG Oral Tablet Take by mouth daily. Two tablets by mouth daily. 0 Active Vitamin C 500 MG Oral Capsule Take by mouth. Pt takes 2 caps daily 0 Active Vitamin D3 50 MCG (1999 UT) Oral Tablet Chewable Take by mouth. 0 Activ e Zolpidem Tartrate 5 MG Oral Tablet (Ambien)Indications :Primary insomnia Take 1 Tablet by mouth at bedtime as needed for Sleep. 30 Tablet 0 04/13/2023 Active Fluticasone Propionate 50 MCG/ACT Nasal Suspension (Flonase)Indication s:Chronic rhinitis Administer 2 Sprays into each nostril in the morning. 48 g 3 04/13/2023 Active Enoxaparin Sodium 40 MG/0.4ML Injection Solution Prefilled Syringe (Lovenox)Indication s:Maternal DVT (deep vein thrombosis), history of Inject 40 mg under the skin in the morning. 12 mL 10 04/25/2023 Active Heparin Sodium (Porcine) 18319 UNIT/ML Injection SolutionIndications :Acute deep vein thrombosis (DVT) of tibial vein of right lower extremity (HCC) Inject 1 mL under the skin in the morning and 1 mL before bedtime. 28 mL 1 11/07/2023 Active Syringe 25G X 5/8" 3 MLIndications:Mater nal DVT (deep vein thrombosis), history of Use as directed to administer heparin 100 Each 1 12/08/2023 Active Sertraline HCl 100 MG Oral Tablet (Zoloft) TAKE 2 TABLETS BY MOUTH EVERY MORNING 180 Tablet 1 12/10/2023 Active documented as of this encounter (statuses as of 12/20/2023) Active Problems Problem Noted Date Diagnosed Date Acute deep vein thrombosis ( DVT) of tibial vein of right lower extremity 05/19/2022 Migraine without aura and wi thout status migrainosus, not intractable 05/18/2022 VSD (ventricular septal defect) 08/12/2021 Comments Yes documented as of this encounter (statuses as of 12/20/2023) Resolved Problems Problem Noted Date Diagnosed Date Resolved Date BMI less than 19,adult 08/12/202105/18 Low back pain with left-sided sciatica 08/12/2021 05/18/2022 documented as of this encounter (statuses as of 12/20/2023) Immunizations Name Administration Dates Next Due TDAP (age 10 and older)(Boostrix) 06/05/2020,11/2018 TDAP (age 11 and older)(Adacel) 12/30/2021 documented as of this encounter Social History Tobacco Use Types Packs/Day Years Used Date Smoking Tobacco: Never Smokeless Tobacco: Never Alcohol Use Standard Drinks/Week Comments Not Currently 5 (1 standard drink = 0.6 oz pur e alcohol) only weekends PHQ-2 Answer Date Recorded PHQ Adult Total Score 0 10/04/2022 Velva Depression Scale Answer Date Recorded Velva Depression Scale Score 3 07/08/2020 The thought of harming myself has occurred to me . (Pt Reported) 07/08/2020 Comments Yes Sex and Gender Information Value Date Recorded Sex Assigned at Not on file Gender Identity Not on file Sexual Orientation Not on file Job Start Date Occupation Industry Not on file Not on file Not on file documented as of this encounter Miscellaneous Notes * Telephone Encounter - Bruna Delong LPN - 12/16/2023 3:33 PM EDT [facility] reporting final results for STAT Venous Doppler. See results. documented in this encounter Plan of Treatment Health Maintenance Due Date Last Done Comments Pap Smear 01/28/2016 COVID-19 Vaccine ( season) 2023 Depression Screening 10/04/2023 10/04/2022 Influenza Vaccine (FLU shot) (Season Ended) 2024 06/27/2018, 06/12/2018 DTaP,Tdap,and Td Vaccines (9 - Td or Tdap) 12/31/2031 12/30/2021, 06/05/2020, 02/05/2019, Additional history exists MENINGOCOCCAL (MENACTRA/MENVEO) Completed 04/10/2012, 10/22/2009 Hepatitis B Completed 06/06/2014, 07/07, 1995 GARDASIL-HPV IMMUNIZATION SERIES Aged Out No longer eligible based on patient's age to complete this topic Hepatitis C Screening Discontinued Pneumococcal Vaccine: Pediatrics (0 to 5 Years) and At-Risk Patients (6 to 64 Years) Aged Out No longer eligible based on patient's age to complete this topic documented as of this encounter Medical Devices Not on filedocumented as of this encounter Care Teams Manager Actuarial Relationship Specialty Start Date End Date Davian Aquino DO [address] [place] [address] PCP - General Family Medicine 08/12/21 documented as of this encounter
[2023-12-25] MEDS ORDERED: LACTATED RINGER'S 1,000 ML IV PRN (10:06)
[2023-12-25] MEDS ORDERED: LIDOCAINE 1% LOCAL 20 ML VIAL INFIL PRN (10:06)
--- NOTE | 2023-12-25 10:32 | History & Physical Report ---
Date of Service December 25, 2023 Assessment & Plan (1) Supervision of normal intrauterine in multigravida: Plan: Admit to L&D. EFM/toco, labs. Does not desire epidural. Took heparin 1000u at midnight last night, will have protamine sulfate 10mg at bedside to give if needed for hemorrhage. History of Present Illness Chief Complaint: contractions Primary Care Provider: Davian Aquino, DO 28yo @ 39 0/7, presented to L&D with contractions. No leaking fluid or vaginal bleeding. + movement. PPX DVT in Prior (7wks) *Lovenox daily, aware of rec to switch to heparin at 36wks(may opt against)--switching to heparin at 36wks *[place] [facility] [facility] [place] 6wk pp as well *neg thrombophilia testing Maternal VSD *plan echo [id number] ?11/01 (was rescheduled)---normal maternal echo WNL Uterine fibroid?--> recheck at [facility]--> no evidence of fibroid IOL Post-dates 01/08 Allergies Allergy/AdvReac Type Severity Reaction Status Date / Time No Known Allergies Allergy Verified 12/19/23 11:14 Home Medications Medication Instructions Recorded Confirmed Type lactobacillus combination no.4 3 3,000 mmu cells PO QAM 11/21/20 12/19/23 History billion cell capsule (Probiotic) prenat.vits,salvador,ijj-guqy-[id number] 1 tab PO DAILY 08/05/21 12/19/23 History magnesium 500 mg tablet 500 mg PO HS 12/05/21 12/19/23 History sertraline 100 mg tablet (Zoloft) 200 mg PO DAILY 05/17/23 12/19/23 History heparin, porcine (PF) subcut 12/05/23 12/19/23 History Patient History Medical History Hx of migraines anxiety on Zoloft (childbirth 06/2020) Ventricular septal defect 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 Kramer). Cardio monitoring with yearly echos. Surgical History History of mandibular surgery PONV (postoperative nausea and vomiting) after tonsilectomy S/P breast augmentation S/P tonsillectomy S/P wisdom tooth extraction Family History Grandmother (Paternal) Ovarian cancer Ovarian cyst Father Adenocarcinoma of large intestine Social History (Updated 05/17/23 @ 10:50 by Fariha Reynolds) Smoking Status: Never smoker Second Hand Exposure: No; Do You Dip or Chew Tobacco: No; Hx Alcohol Use: No Hx Substance Use: No Preferred Language: Polish Communication Ability: Effective Art Teacher Required: No Beliefs That Will Affect Care: None marital status: marital status details: Jimmy Burris [phone] Current Living Situation: Family Current Living Situation Comment: lives with and children, 2 dogs current occupational status: unemployed current occupation: homemaker Other Information That Helps Us Care for You: No Feels Safe at Home: Yes Childhood Exposure to Second-Hand Smoke: No Diet: regular caffeine: No Dental Care, Regularly: Yes Seatbelt Use: always Sunscreen Use: Yes Do you think of yourself as: straight/heterosexual Gender Identity: Female Assistive Devices: None Review of Systems All systems reviewed & are unremarkable except as noted in HPI & below Physical Exam Physical Exam: FHT Cat 1 [place] not tracing yet SVE 9cm dilated per RN, low station Constitutional: WD/WN, vitals as above Respiratory: normal respiratory effort, lungs clear to auscultation no respiratory distress Cardiovascular: Rate/Rhythm: regular rate and regular rhythm Gastrointestinal (Abdomen): Inspection/Auscultation: abdomen normal to inspection Percussion/Palpation: abdomen soft; abdomen nontender Gravid. No s/s chorio or abruption. Skin: no rashes, warm and dry Psychiatric: A+Ox3, euthymic affect Results & Data Vital Signs (Past 12 Hours) Vital Signs Pulse BP 12/25/23 10:01 102 H 127/79 Coding Level of Care Code None Diagnoses Supervision of normal intrauterine in multigravida Z34.80
[2023-12-25] MEDS ORDERED: PROTAMINE SULFATE 10 MG in DEXTROSE 5% 50 ML IV PRN (10:45)
[2023-12-25] MEDS ORDERED: STAT IV/IM STA (10:45)
[2023-12-25 10:54] LABS: Hematocrit (blood only) 35.3 % (37.0-47.0); Hemoglobin 11.5 g/dl (12.0-16.0); Mean Corpuscular Hemoglobin 27.7 pg (25.0-34.0); Mean Corpuscular Hgb Conc 32.6 g/dL (32.0-36.0); Mean Corpuscular Volume 85.1 fL (80.0-100.0); Mean Platelet Volume 10.8 fL (9.4-12.4); Platelet Count 201 K/uL (130-400); RDW Coefficient of Variation 12.8 % (11.5-14.5); Red Blood Count 4.15 M/uL (4.20-5.40); White Blood Count 11.22 K/ul (4.8-10.8)
[2023-12-25 11:37] LABS: INR 0.9 (0.9-1.1); Partial Thromboplastin Ratio 0.9; Partial Thromboplastin Time 26 Seconds (21-31); Prothrombin Time 9.8 Seconds (9.0-12.0)
[2023-12-25] MEDS: OXYTOCIN 30 UNITS/NSS 30 UNITS/500 ML BAG IV PRN (11:47)
--- NOTE | 2023-12-25 12:00 | Delivery Summary ---
Vaginal Delivery Summary Date of Service December 25, 2023 Vaginal Delivery Summary [facility] Vaginal Delivery Summary: Pre-delivery diagnoses: 28yo @ 39 0/7, spontaneous labor, DVT in prior - on anticoagulation (heparin), maternal VSD Post-delivery diagnoses: same Procedure: spontaneous vaginal delivery Surgeon: Guera Mujica DO Complications: none Findings: Viable . Apgars: 8/9 . Weight pending, please see nursery records. QBL: 156 Description of delivery: The patient progressed to complete without anesthesia. She then began to push, desired pushing and delivery in [id number] position. She spontaneously vaginally delivered a viable from the cephalic presentation. The head delivered in ESTEBAN position. The anterior shoulder delivered, followed by the posterior shoulder, followed by the body. The baby was placed through the mother's legs and a spontaneous cry was heard. Delayed cord clamping was employed, and the cord was doubly clamped and cut. Cord blood was obtained. The placenta was delivered spontaneously intact with a 3-vessel cord. The uterus and vagina were swept of clots and debris. The uterus became firm. The cervix, vagina, and perineum were inspected and no lacerations were noted. Excellent hemostasis was observed. IV pitocin was given after placenta delivery - baby's father turned the IV infusion off after staff left the room, RN counseled patient and on the rationale for pitocin - high risk for hemorrhage d/t and heparin use. Patient and agreed to restart infusion. Placenta going home with family per patient's request. The mother and baby are recovering in stable and good condition in the room. Sponge and instrument counts were correct x 2. Guera Mujica DO [facility] Vaginal Delivery Charge Vaginal Delivery Codes: 71658 global code for the antepartum, delivery, and post- Delivery Type Details: [facility]
[2023-12-25] MEDS ORDERED: bisacodyL 10 MG SUPP PR PRN (12:12)
[2023-12-25] MEDS ORDERED: BENZOCAINE 20% SPRY 85 APPLN/85 GM CAN EXT PRN (12:12)
[2023-12-25] MEDS ORDERED: OXYTOCIN 30 UNITS/NSS 30 UNITS/500 ML BAG IV PRN (12:12)
[2023-12-25] MEDS ORDERED: oxyCODONE/ACETAMINOPHEN 5mg/325mg TAB PO PRN (12:12)
[2023-12-25] MEDS ORDERED: ACETAMINOPHEN 325 MG TAB PO PRN (12:12)
[2023-12-25] MEDS ORDERED: HYDROCORTISONE ACETATE 25 MG SUPP PR PRN (12:12)
[2023-12-25] MEDS ORDERED: IBUPROFEN 600 MG TAB PO PRN (12:12)
[2023-12-25] MEDS ORDERED: SODIUM CHLORIDE 0.9% 250 ML IV PRN (15:02)
[2023-12-25] MEDS: DIPHTHER/TETAN/PERTUS Vaccine (Tdap, Adol/Adult) 0.5mL IM ONE (19:20)
[2023-12-25] MEDS: DOCUSATE SODIUM 100 MG CAP PO SCH (20:59)
[2023-12-25] MEDS: HEPARIN SOD 5,000 UNIT/0.5 ML VIAL SQ SCH (21:46)
[2023-12-25] MEDS ORDERED: HEPARIN SQ SCH (22:00)
--- NOTE | 2023-12-26 06:10 | Obstetrical Progress Note ---
Date of Service December 26, 2023 Assessment & Plan (1) care and examination: Plan Doing well Encourage ambulation Pain control Anticipate dc later today or tomorrow Admission and Anticipated Discharge Date Admission Date: December 25, 2023 Supervising Physician Co-Signing Physician Notes Resident Physician Supervision Note: I interviewed and examined the patient. Discussed with Dr. Mcknight and agree with findings and plan as documented in the note. Any exceptions or clarifications are listed here: PPD1 doing well, routine care. Documented By: Guera Mujica, Subjective 28 yo post day 1 s/p Ambulation: ambulating normally Voiding: no voiding problems Passing Gas:: Yes Diet Tolerance:: regular diet Lochia:: Small Feeding Type: Breast Current Pain Level: Minimal Resting comfortably this AM in NAD. Denies LUND, CP, SOB, N/V/D, LE pain/swelling. Review of Systems Review of Systems: reviewed, per HPI Physical Exam Physical Exam: General: patient resting comfortably, NAD, non-toxic in appearance, answers questions appropriately. Skin: warm, dry, intact HEENT: NC/AT, anicteric sclera, conjunctiva without injection, moist mucus membranes. Heart: +S1/S2, regular, no m/r/g Lungs: equal air entry bilaterally, no rales/rhonchi/wheezes Abd: +BS, soft, NT/ND, uterine fundus firm at umbilicus Ext: warm, no clubbing/cyanosis or edema, Elle's neg. Neuro: nonfocal, speech intact, no facial droop, moving all extremities on command. Results & Data Vital Signs (Past 12 Hours) Vital Signs Temp Pulse Resp BP Pulse Ox O2 Del Method 12/26/23 03:00 36.6 C 86 16 96/60 L 98 Room Air 12/25/23 22:34 36.6 C 74 18 117/70 97 Room Air 12/25/23 18:51 36.6 C 89 18 106/65 99 Room Air Resident Activity Tracking Resident Involvement: Resident Care Provided Care Provided: Adult Hospital Medicine
[2023-12-26 06:22] LABS: Hematocrit (blood only) 34.7 % (37.0-47.0); Hemoglobin 10.9 g/dl (12.0-16.0)
[2023-12-26] MEDS: PRENATAL VITAMIN 1 TAB PO SCH (08:07)
[2023-12-26] MEDS: bisacodyL 5 MG TABEC PO SCH (20:37)
--- NOTE | 2023-12-27 06:13 | Obstetrical Progress Note ---
Date of Service December 27, 2023 Assessment & Plan (1) care and examination: Plan Doing well Encourage ambulation Pain control DC today Admission and Anticipated Discharge Date Admission Date: December 25, 2023 Supervising Physician Co-Signing Physician Notes Patient seen with resident and agree with the above findings and plan. Stable for discharge Subjective 28 yo post day 1 s/p Ambulation: ambulating normally Voiding: no voiding problems Passing Gas:: Yes Diet Tolerance:: regular diet Lochia:: Small Feeding Type: Breast Current Pain Level: Minimal Resting comfortably this AM in NAD. Denies LUND, CP, SOB, N/V/D, LE pain/swelling. Review of Systems Review of Systems: reviewed, per HPI Physical Exam Physical Exam: General: patient resting comfortably, NAD, non-toxic in appearance, answers questions appropriately. Skin: warm, dry, intact HEENT: NC/AT, anicteric sclera, conjunctiva without injection, moist mucus membranes. Heart: +S1/S2, regular, no m/r/g Lungs: equal air entry bilaterally, no rales/rhonchi/wheezes Abd: +BS, soft, NT/ND, uterine fundus firm at umbilicus Ext: warm, no clubbing/cyanosis or edema, Elle's neg. Neuro: nonfocal, speech intact, no facial droop, moving all extremities on command. Results & Data Vital Signs (Past 12 Hours) Vital Signs Temp Pulse Resp BP Pulse Ox O2 Del Method 12/27/23 00:40 36.8 C 74 16 96/61 L 100 Room Air 12/26/23 19:25 36.7 C 84 18 98/61 L 98 Room Air Resident Activity Tracking Resident Involvement: Resident Care Provided Care Provided: Adult Hospital Medicine
== END 2023-12-27 12:30 | disposition home or self-care (01) | DRG 807 ==
LOC: OPB 09:58 → 4S1 10:00 → 4E2 15:23